=== PATIENT | female | born 1995 | race African-American/Black ===

== ENCOUNTER 2020-10-13 09:36 | Inpatient (IN) | payer MEDICAID, OTHER ==
[~2020-10-13] VITALS: Ht 162.6 cm; Wt 88.0 kg
[2020-10-13] MEDS ORDERED: DEXT 5%/LR + PITOCIN 20UNITS/L 1,000 ML IV SCH (14:15)
[2020-10-13] MEDS ORDERED: NALOXONE HCL 0.4 MG/ML 1ML VIAL IM PRN (14:15)
[2020-10-13] MEDS ORDERED: MISOPROSTOL 100MCG TABLET VG SCH (14:15)
[2020-10-13] MEDS ORDERED: BUTORPHANOL TARTRATE 2 MG/ML VIAL IV PRN (14:15)
[2020-10-13] MEDS ORDERED: CARBOPROST TROMETHAMINE 250 MCG/ML AMPUL IM PRN (14:15)
[2020-10-13] MEDS ORDERED: LIDOCAINE HCL 1% 20ML VIAL (Pyxis) INJ INFIL SCH (14:15)
[2020-10-13] MEDS ORDERED: METHYLERGONOVINE MALEATE 0.2 MG/ML IM PRN (14:15)
[2020-10-13] MEDS: LACTATED RINGERS 1,000 ML IV SCH ×3 (14:47→22:40)
[2020-10-13] MEDS ORDERED: ROPIVACAINE HCL/PF EPIDURAL 200 ML EPI SCH (15:45)
[2020-10-13 15:59] LABS: CLARITY URINE CLEAR (CLEAR); COLOR URINE YELLOW (YELLOW); KETONES URINE TRACE (NEGATIVE); LEUKOCYTE ESTERASE URINE 3+ (NEGATIVE); NITRITE URINE NEGATIVE (NEGATIVE); OCCULT BLOOD URINE NEGATIVE (NEGATIVE); PH URINE 6.5 (4.5-8.0); PROTEIN URINE NEGATIVE (NEGATIVE); SPECIFIC GRAVITY URINE 1.018 (1.005-1.030)
[2020-10-13 16:08] LABS: BASOPHILS % 0.6 % (0.0-2.0); EOSINOPHILS % 0.8 % (0.0-5.0); HEMATOCRIT. 31.7 % (36.0-48.0); HEMOGLOBIN. 10.3 g/dL (12.0-16.0); LYMPHOCYTES % 19.3 % (20.0-50.0); MEAN CORPUSCULAR HEMOGLOBIN 25.1 pg (28.0-32.0); MEAN CORPUSCULAR VOLUME 76.9 fL (81.0-99.0); MEAN PLATELET VOLUME 9.5 fl (7.4-10.4); MONOCYTES % 10.6 % (2.0-8.0); NEUTROPHILS % 68.7 % (40.0-76.0); PLATELET 268 x1000/uL (130-400); RED BLOOD CELL COUNT 4.12 mill/uL (4.2-5.4); RED CELL DISTRIBUTION WIDTH 13.7 % (11.6-14.6)
[2020-10-13 16:10] LABS: INR 0.9; PARTIAL THROMBOPLASTIN TIME 25.6 sec (23.4-31.0); PROTHROMBIN TIME 9.9 sec (9.6-11.0)
[2020-10-13 16:13] LABS: *AMPHETAMINES SCREEN URINE NEGATIVE (NEGATIVE); *BARBITURATES SCREEN URINE NEGATIVE (NEGATIVE); *BENZODIAZEPINES SCREEN URINE NEGATIVE (NEGATIVE)
[2020-10-13 16:14] LABS: *COCAINE SCREEN URINE NEGATIVE (NEGATIVE); CANNABINOID URINE SCREEN NEGATIVE (NEGATIVE); METHADONE URINE SCREEN NEGATIVE (NEGATIVE); OPIATES URINE SCREEN NEGATIVE (NEGATIVE); PHENCYCLIDINE URINE SCREEN NEGATIVE (NEGATIVE)
[2020-10-13 16:45] LABS: HEPATITIS B SURFACE ANTIGEN NEGATIVE
[2020-10-13] MEDS ORDERED: CLINDAMYCIN 900 MG in DEXTROSE 5% WATER 50 ML IV SCH (20:00)
[2020-10-14] MEDS ORDERED: FENTANYL CITRATE/PF 50MCG/ML 2ML VIAL ONE (00:43)
[2020-10-14] MEDS: LACTATED RINGERS 1,000 ML IV SCH (01:31)
[2020-10-14] MEDS ORDERED: GLYCERIN/WITCH HAZEL LEAF MEDICATED PAD TOP PRN (10:45)
[2020-10-14] MEDS ORDERED: ACETAMINOPHEN WITH CODEINE 300/30MG TABLET PO PRN (10:45)
[2020-10-14] MEDS ORDERED: DEXT 5%/LR + PITOCIN 20UNITS/L 1,000 ML IV SCH (10:45)
[2020-10-14] MEDS ORDERED: BISACODYL 10MG SUPP PR PRN (10:45)
[2020-10-14] MEDS ORDERED: BENZOCAINE/LANOLIN/ALOE VERA SPRAY TOP PRN (10:45)
[2020-10-14] MEDS ORDERED: IBUPROFEN 400MG TABLET PO PRN (10:45)
[2020-10-14] MEDS ORDERED: HEMORRHOIDAL SUPP PR PRN (10:45)
[2020-10-14] MEDS ORDERED: RHO(D) IMMUNE GLOBULIN 300 MCG/SYR IM PRN (10:45)
[2020-10-14] MEDS ORDERED: LANOLIN OINT 7GM TUBE TOP PRN (10:45)
[2020-10-14] MEDS ORDERED: DIPHENHYDRAMINE 25MG CAPSULE PO PRN (10:45)
[2020-10-14 11:15] VITALS: BP 117/61
[2020-10-14 11:45] VITALS: BP 120/60
[2020-10-14] MEDS: IBUPROFEN 800MG TABLET PO PRN (11:47)
[2020-10-14] MEDS: MAGNESIUM/ALUMINUM HYDROXIDE/SIMETHICONE 30ML UDC PO SCH ×3 (12:30→21:37)
[2020-10-14 12:45] VITALS: BP 115/53
[2020-10-14] MEDS: SIMETHICONE 80MG TABLET CHEW PO SCH ×2 (13:00→18:00)
[2020-10-14 16:37] VITALS: BP 98/73
[2020-10-14] MEDS: DOCUSATE SODIUM 100MG CAPSULE PO SCH (21:37)
[2020-10-14 22:00] VITALS: BP 119/71
[2020-10-15 05:40] VITALS: BP 113/70
[2020-10-15 06:13] LABS: BASOPHILS % 0.3 % (0.0-2.0); EOSINOPHILS % 0.6 % (0.0-5.0); LYMPHOCYTES % 18.2 % (20.0-50.0); MEAN CORPUSCULAR HEMOGLOBIN 24.7 pg (28.0-32.0); MEAN CORPUSCULAR VOLUME 77.2 fL (81.0-99.0); MEAN PLATELET VOLUME 8.6 fl (7.4-10.4); MONOCYTES % 9.6 % (2.0-8.0); NEUTROPHILS % 71.3 % (40.0-76.0); PLATELET 227 x1000/uL (130-400); RED BLOOD CELL COUNT 3.63 mill/uL (4.2-5.4); RED CELL DISTRIBUTION WIDTH 13.8 % (11.6-14.6)
[2020-10-15 08:15] VITALS: BP 111/56
[2020-10-15] MEDS: FERROUS SULFATE 325MG TABLET PO SCH ×3 (09:19→17:30)
[2020-10-15] MEDS: PRENATAL VIT/FE FUMARATE/FA TABLET PO SCH (09:19)
[2020-10-15] MEDS: SIMETHICONE 80MG TABLET CHEW PO SCH ×4 (09:20→21:12)
[2020-10-15] MEDS: MAGNESIUM/ALUMINUM HYDROXIDE/SIMETHICONE 30ML UDC PO SCH ×4 (09:20→21:11)
[2020-10-15 15:47] VITALS: BP 133/77
[2020-10-15] MEDS: DOCUSATE SODIUM 100MG CAPSULE PO SCH (21:10)
[2020-10-15 22:00] VITALS: BP 123/75
[2020-10-16] MEDS ORDERED: IBUP-2030 PO (02:57)
[2020-10-16 06:09] VITALS: BP 121/73
[2020-10-16 08:30] VITALS: BP 134/69
[2020-10-16] MEDS: PRENATAL VIT/FE FUMARATE/FA TABLET PO SCH (08:55)
[2020-10-16] MEDS: IBUPROFEN 800MG TABLET PO PRN (08:55)
== END 2020-10-16 12:30 | disposition home or self-care (01) | DRG 560 ==
LOC: OBSVTOIN 09:36 → 8 EST LDRP 09:36 → 8EST 10-14 11:30
PROVIDERS: ADMIT Obstetrics & Gynecology; ATTEND Obstetrics & Gynecology
PROC: 10D07Z6 Extraction of Products of Conception, Vacuum, Via Natural or Artificial Opening (ICD-10-PCS; principal; 2020-10-14)
PROC: 0W8NXZZ Division of Female Perineum, External Approach (ICD-10-PCS; 2020-10-14)
PROC: 3E0R3BZ Introduction of Anesthetic Agent into Spinal Canal, Percutaneous Approach (ICD-10-PCS; 2020-10-14)
PROC: 00HU33Z Insertion of Infusion Device into Spinal Canal, Percutaneous Approach (ICD-10-PCS; 2020-10-14)
DX: O99.02 Anemia complicating childbirth (principal); Z37.0 Single live birth; D62 Acute posthemorrhagic anemia; Z3A.39 39 weeks gestation of pregnancy; Z88.6 Allergy status to analgesic agent; Z88.0 Allergy status to penicillin
CPT/HCPCS: 36415; 76805; 76818; 80305; 81003; 85025; 86592; 86703; 86762; 86850; 86900; 87340; 99281; G0378; J2590; J2795; J3010; J3490; J7060; J7120; A4315